=== PATIENT | male | born 2000 | race Caucasian/White ===

== ENCOUNTER 2023-07-02 13:44 | Emergency (ER) | payer SELFPAY ==
[~2023-07-02] VITALS: Ht 190.5 cm; Wt 61.2 kg
[2023-07-02] MEDS ORDERED: CLINDAMYCIN HCL 150 MG CAPSULE ONE (14:29)
[2023-07-02] MEDS: CLINDAMYCIN HCL 150 MG CAPSULE PO ONE (14:32)
[2023-07-02] MEDS ORDERED: CLIN300C12 PO (14:38)
[2023-07-02 15:09] VITALS: BP 106/66; TEMP 98.4; O2SAT 100
== END 2023-07-02 15:00 | disposition home or self-care (01) ==
LOC: ER 13:44
DX: L03.211 Cellulitis of face (principal)